=== PATIENT | male | born 1985 | race Caucasian/White ===

== ENCOUNTER 2021-04-28 14:08 | Emergency (ER) | payer SELFPAY ==
[~2021-04-28] VITALS: Ht 188 cm; Wt 63.6 kg
[2021-04-28] MEDS ORDERED: GABAPENTIN100 MG PO (16:37)
== END 2021-04-28 16:55 | disposition home or self-care (01) ==
LOC: ED 14:08
DX: M51.36 Other intervertebral disc degeneration, lumbar region (principal)
CPT/HCPCS: 72131; 85025; 86140; 99284-25

== ENCOUNTER 2021-09-18 14:11 | Emergency (ER) | payer OTHER ==
[~2021-09-18] VITALS: Ht 188 cm; Wt 63.6 kg
[~2021-09-18 14:11] MED LIST: GABAPENTIN100 MG PO
[2021-09-18] MEDS ORDERED: CYMBALTA60 MG PO (14:43)
== END 2021-09-18 16:06 | disposition home or self-care (01) ==
LOC: ED 14:11
DX: J30.9 Allergic rhinitis, unspecified (principal); Z79.899 Other long term (current) drug therapy
CPT/HCPCS: 99282

== ENCOUNTER 2023-06-15 17:46 | Emergency (ER) | payer OTHER ==
[~2023-06-15] VITALS: Ht 188 cm; Wt 62.5 kg
[~2023-06-15 17:46] MED LIST changes: +CYMBALTA60 MG PO; +DOXYCYCLINE HY100 MG PO
[2023-06-15 18:56] LABS: INFLUENZA B NAA NEGATIVE (NEGATIVE); RESPIRATORY SYNCYTIAL VIR NAA NEGATIVE (NEGATIVE)
[2023-06-15 21:23] LABS: BASOPHILS 2.1 % (0-2); HEMATOCRIT 44.8 % (35.0-50.0); HEMOGLOBIN 15.3 g/dL (12.0-18.0); LYMPHOCYTES 22.3 % (24-44); MCH 29.3 (27-36); MCHC 34.2 g/dl (30-36); MCV 85.8 fl (81-99); MONOCYTES 6.1 % (0-12); NEUTROPHILS 67.5 % (39-80); PLATELET COUNT 138 K/uL (140-440); RBC 5.23 M/ul (4.3-5.7); RDW 13.3 (10.5-15.0)
[2023-06-15 21:39] LABS: ALBUMIN 3.9 g/dL (3.4-5.0); ALBUMIN/GLOBULIN RATIO 1.3 (1.1-2.4); ANION GAP 8.3 (7-21); BILIRUBIN, TOTAL 0.4 ng/dL (0.2-1.0); BUN/CREATININE RATIO 12.64 (6.0-28.6); CALCIUM 8.9 mg/dL (8.5-10.1); CREATININE, SERUM 0.87 mg/dL (0.70-1.30); POTASSIUM 4.3 mmol/L (3.5-5.1); PROTEIN, TOTAL 6.9 g/dL (6.4-8.2)
[2023-06-15 22:03] VITALS: BP 118/79
[2023-06-17 21:52] LABS: ANTI-NUCLEAR AB ANA,IGG ELISA None Detected (None Detected)
[2023-06-17 22:05] LABS: CRP,HIGH SENSITIVITY 2.8 mg/L (<=3.0)
[2023-06-17 22:06] LABS: RHEUMATOID FACTOR <10 IU/mL (0-14)
== END 2023-06-15 22:04 | disposition home or self-care (01) ==
LOC: ED 17:46
PROVIDERS: Emergency Medicine
DX: R50.9 Fever, unspecified (principal); L53.9 Erythematous condition, unspecified; M79.10 Myalgia, unspecified site
CPT/HCPCS: 36415; 80053; 85025; 85651; 86038; 86141; 86431; 87502; 99283; U0002

== ENCOUNTER 2025-02-19 08:12 | Emergency (ER) | payer OTHER ==
[~2025-02-19] VITALS: Ht 188 cm; Wt 60.1 kg
[2025-02-19] MEDS ORDERED: HYDROXYZINE HCL25 MG PO (09:41)
[2025-02-19] MEDS ORDERED: LORazepam 1 MG TAB PO ONE (09:45)
[2025-02-19 09:54] VITALS: BP 133/95
== END 2025-02-19 09:50 | disposition home or self-care (01) ==
LOC: ED 08:12
DX: F41.9 Anxiety disorder, unspecified (principal)
CPT/HCPCS: 99283; A9270-GY